=== PATIENT | female | born 1985 | race Caucasian/White ===

== ENCOUNTER → 2022-01-20 | Outpatient (CLI) | payer BC ==
[~2022-01-20] MED LIST: BIRTH CONTROL1 EACH PO; MULTIPLE VITAMI1 CAP PO; OMEGA 31000 MG PO
== END | disposition home or self-care (01) ==
LOC: LAB 15:19
PROVIDERS: ATTEND Nurse Practitioner Women's Health
DX: N91.2 Amenorrhea, unspecified (principal)